=== PATIENT | female | born 2000 | race Caucasian/White ===

== ENCOUNTER 2018-04-06 01:02 | Emergency (ER) | payer SELFPAY ==
[2018-04-06] MEDS ORDERED: Haloperidol INJ IV/IM* 5 MG/ML AMP ONE (01:05)
[2018-04-06] MEDS ORDERED: LORazepam INJ* 2 MG/ML 1 ML VIAL IV PUSH ONE (01:06)
[2018-04-06] MEDS ORDERED: Haloperidol INJ IV/IM* 5 MG/ML AMP IV SLOW PU ONE (01:06)
[2018-04-06] MEDS ORDERED: LORazepam INJ* 2 MG/ML 1 ML VIAL ONE (01:06)
[2018-04-06 01:49] LABS: HCG Pregnancy < 0.60 mIU/mL
[2018-04-06 01:51] LABS: Alcohol 301 mg/dL (<10)
[2018-04-06 06:39] VITALS: BP 110/69
--- NOTE | 2018-04-06 07:46 | UC ---
Substance Abuse HPI - HPI Summary HPI Summary: Pt is 17 y/o F brought in by ambulance to ED due to alcohol intoxication. Pt was found unresponsive in school dorm and was reportedly taking vodka shots tonight per EMS. Complete HPI is unobtainable due to level 5 caveat of altered mental status. - History Of Current Complaint Chief Complaint: EDSubstanceAbuse Stated Complaint: ETOH Time Seen by Provider: 04/06/18 01:06 - Allergies/Home Medications Home Medications: Home Medications Unobtainable 04/06/18 [History Confirmed 04/06/18] PMH/Surg Hx/FS Hx/Imm Hx - Additional Past Medical History Additional PMH: Complete Hx unobtainable due to level 5 caveat. - Social History Alcohol Use: unk Substance Use Type: Other Substance Use Comment - Amount & Last Used: unk Smoking Status (MU): Unknown if Ever Smoked Review of Systems All Other Systems Reviewed And Are Negative: No - Comments Additional Review of Systems Comments: Complete ROS unobtainable due to level 5 caveat. Physical Exam - Summary Physical Exam Summary: Pt is awake and alert, not able to hold a conversation, somewhat agitated and unable to follow commands. No sign of injury. Complete physical unobtainable due to level 5 caveat. General: This is a well-developed, well- nourished young woman lying on the stretcher in no apparent distress. The patient appears intoxicated. Neck: No obvious swellings. Lungs: There are no signs of respiratory distress. Coronary: Peripheral perfusion is good. Abdomen: The abdomen appears normal and is nondistended. Genitourinary: Deferred Back: Good range of motion is observed. Extremities: Good range of motion was observed in all 4 extremities. There is no sign of any trauma to the extremities. Neurologic: The patient is awake and alert, speech is slurred. Psychiatric: The patients affect is felt to be normal and appropriate given the intoxication. There is no sign of any hallucinations or delusions, or any other signs of psychosis. Triage Information Reviewed: Yes Vital Signs: Initial Vital Signs Temp 98.5 F 04/06/18 01:09 Pulse 72 04/06/18 01:09 Resp 20 04/06/18 01:09 BP 116/73 04/06/18 01:09 Pulse Ox 97 04/06/18 01:09 Vital Signs Reviewed: Yes Substance Abuse Course/Dx - Course Course Of Treatment: Pt is 17 y/o F brought in by ambulance to ED due to alcohol intoxication. Pt was found unresponsive in school dorm and was reportedly taking vodka shots tonight per EMS. Complete HPI ad Hx is unobtainable due to level 5 caveat of altered mental status. Physical exam found her to be Awake and alert, unable to hold conversation, and no signs of injury. After rest, pt states she feels better and is discharged home. - Differential Dx/Diagnosis Provider Diagnosis: Alcohol abuse Discharge - Sign-Out/Discharge Documenting (check all that apply): Patient Departure - Discharge - Discharge Plan Condition: Good Disposition: HOME Patient Education Materials: Alcohol Intoxication (ED) Referrals: [facility] [Outside] - Billing Disposition and Condition Condition: GOOD Disposition: Home - Attestation Statements Document Initiated by Robibe: Yes Documenting Scribe: Kirby Hernandez Provider For Whom Scribe is Documenting (Include Credential): Dr. Epi Corral MD Scribe Attestation: Kirby Roman scribed for Dr. Epi Corral MD on 04/07/18 at 0201. Scribe Documentation Reviewed: Yes Provider Attestation: The documentation as recorded by the scribe, Kirby Hernandez accurately reflects the service I personally performed and the decisions made by me, Dr. Epi Corral MD Status of Scribe Document: Viewed
== END 2018-04-06 06:38 | disposition home or self-care (01) ==
LOC: ED 01:02
DX: F10.129 Alcohol abuse with intoxication, unspecified (principal)
CPT/HCPCS: 36415; 80320; 84702; 96374; 96375; 99284; G0480; J1630; J2060